=== PATIENT | male | born 1975 | race Two or more races ===

== ENCOUNTER 2019-04-27 16:59 | Emergency (ER) | payer OTHER ==
[~2019-04-27] VITALS: Ht 180.3 cm; Wt 100.0 kg
[2019-04-27] MEDS ORDERED: BACITRACIN 0.9 GM PACKET OINTMENT TP ONE (17:30)
[2019-04-27] MEDS ORDERED: LIDOCAINE/PF 1% 5 ML VIAL INJ ONE (17:30)
[2019-04-27] MEDS ORDERED: PERTUSS(ACELL),DIPH,TET VAC/PF 0.5 ML VIAL IM ONE (17:45)
[2019-04-27 18:50] VITALS: BP 141/84
== END 2019-04-27 18:58 | disposition home or self-care (01) ==
LOC: EMS 17:00
DX: S61.210A Laceration without foreign body of right index finger without damage to nail, initial encounter (principal); W29.8XXA Contact with other powered hand tools and household machinery, initial encounter; Y93.H3 Activity, building and construction; Y92.69 Other specified industrial and construction area as the place of occurrence of the external cause; Y99.0 Civilian activity done for income or pay
CPT/HCPCS: 12002; 73130; 90471; 90715; 99283; J2001